=== PATIENT | male | born 1965 | race Caucasian/White ===

== ENCOUNTER 2022-03-22 10:19 | Inpatient (IN) ==
[2022-03-22 10:29] VITALS: BMI 27.9
[2022-03-22] MEDS ORDERED: LACTATED RINGERS 1,000 ML IV STA (10:50)
[2022-03-22 11:11] LABS: BASOPHILS % (AUTO) 0.2 % (0.0-3.0); EOSINOPHILS % (AUTO) 0.1 % (0.0-7.0); HEMATOCRIT 49.7 % (37.0-47.0); HEMOGLOBIN 16.8 g/dl (12.0-16.0); IMMATURE GRANULOCYTE # (AUTO) 0.1 (0.0-1.0); IMMATURE GRANULOCYTE % (AUTO) 0.4 % (0.0-5.0); LYMPHOCYTES # (AUTO) 0.9 K/uL (0.60-3.4); LYMPHOCYTES % (AUTO) 6.6 (10.0-50.0); MEAN CORPUSCULAR HEMOGLOBIN 30.2 pg (27.0-31.0); MEAN CORPUSCULAR HGB CONC 33.8 (31.8-35.4); MEAN CORPUSCULAR VOLUME 89.4 fl (81.0-99.0); MONOCYTES # (AUTO) 1.6 K/uL (0.4-2.0); MONOCYTES % (AUTO) 11.4 (0-10); NEUTROPHILS # (AUTO) 11.5 K/ul (2.0-6.9); NEUTROPHILS % (AUTO) 81.3 % (42.2-75.2); PLATELET COUNT 384 10^3/uL (140-440); RDW COEFFICIENT OF VARIATION 12.7 % (11.6-14.8); RED BLOOD COUNT 5.56 10^6/ul (4.20-5.40); WHITE BLOOD COUNT 14.09 K/ul (4.6-10.2)
[2022-03-22 11:25] LABS: ALANINE AMINOTRANSFERASE 25.9 U/L (0-35); ALBUMIN 3.99 g/dL (3.5-5.0); ASPARTATE AMINO TRANSFERASE 40.2 U/L (14-36); BILIRUBIN,TOTAL 0.71 mg/dL (0.2-1.3); BLOOD UREA NITROGEN 23.2 mg/dL (7-17); CALCIUM 8.94 mg/dL (8.4-10.2); CARBON DIOXIDE 29.9 mmol/L (22-30.0); CHLORIDE 94.9 mmol/L (98-107); CREATININE 1.42 mg/dL (0.60-1.30); GLUCOSE 147.2 mg/dL (74-106); POTASSIUM 3.73 mmol/L (3.5-5.1); SODIUM 132.5 mmol/L (134.5-145); TOTAL PROTEIN 7.56 g/dL (6.3-8.2)
--- NOTE | 2022-03-22 11:56 | CT ---
EXAM: CT abdomen pelvis without contrast HISTORY: Abdominal pain COMPARISON: None TECHNIQUE: Serial axial images of the abdomen pelvis were performed from the lung bases through the inferior pelvis without contrast. These were viewed in multiple planes. FINDINGS: Lung bases are clear with small airways thickening and ground-glass and ground-glass nodul es in the left lower lobe. Liver is unremarkable. The gallbladder is mildly distended. Adrenal glands are normal. Kidneys dem onstrate no obstructive uropathy with an exophytic low attenuation left renal cyst measuring 1.6 cm. Pancreas is normal. The stomach is minimally distended. The small bowel in the abdomen and pelvis is unremarkable. The colon demonstrates diffuse colonic wa ll thickening and inflammatory stranding seen throughout the entirety of the colon, but is most prono unced in the cecum. The appendix is normal. Urinary bladder is partially distended. The prostate i s normal. There is no lymphadenopathy or free air. The osseous structures demonstrate pars defects at L5 IMPRESSION: 1. Pancolitis most pronounced in the sigmoid colon and the cecum. There is no free air or abscess. 2. Small airways thickening with ground-glass and ground-glass nodules in the lung bases suggestive of small airways inflammation/infection. 3. Left renal cyst. All CT scans are performed using dose optimization techniques as appropriate to the performed exam an d include at least one of the following: Automated exposure control, adjustment of the mA and/or kV according t o size, and the use of iterative reconstruction technique.
--- NOTE | 2022-03-22 13:06 | ED.PDOC ---
General ED Provider: Dr. ELIZABET HSIEH Chief Complaint: Diarrhea Stated Complaint: Ill a few d with abdom cramps and watery diarrhea, several times a day. No fever, some nausea. He had been taking omnicef for bronchitis, and stopped when these sx started (took 8 of a 10 day supply). Generally healthy . No hx food poisoning, etc. Time Seen by Provider: 03/22/22 10:43 Mode of Arrival: Walk-In Information Source: Patient Exam Limitations: No limitations Nursing and Triage Documentation Reviewed and Agree: Yes Does patient meet sepsis criteria?: No System Inflammatory Response Syndrome: Not Applicable Sepsis Protocol: For patient's 13 years and over: Temp is 96.8 and below OR 101 and greater Pulse >90 BPM Resp >20/minute Acutely Altered Mental Status Are patient's symptoms suggestive of a new infection, such as: -Pneumonia -Skin, Soft Tissue -Endocarditis -UTI -Bone, Joint Infection -Implantable Device -Acute Abdominal Infection -Wound Infection -Meningitis -Blood Stream Catheter Infection -Unknown GI Complaint Exam Vomiting/Diarrhea Complaint/Exam Onset/Duration: few d Symptoms Are: Still present Episodes of Vomiting over last 24 Hours: 0 Episodes of Diarrhea Over Last 24 Hours: 10 Initial Severity: Mild Current Severity: Moderate Character of Diarrhea: Reports Watery Aggravating: Reports Food Alleviating: Reports None Associated Signs and Symptoms: Reports Cramping Non-GI Risk Factors: Reports None Surgical Obstruction Risk Factors: Reports None Related Surgical History: Reports None Abdominal Findings: Present Other (generalized cramping) Review of Systems Review Of Systems Constitutional: Reports Malaise, Weakness and Loss of appetite Eyes: Reports No symptoms Ears, Nose, Mouth, Throat: Reports No symptoms Respiratory: Reports No symptoms Cardiac: Reports No symptoms GI: Reports Abdominal pain, Diarrhea, Nausea and Poor fluid intake : Reports No symptoms Musculoskeletal: Reports No symptoms Skin: Reports No symptoms Neurological: Reports No symptoms Endocrine: Reports No symptoms Hematologic/Lymphatic: Reports No symptoms All Other Systems: Reviewed and Negative [facility] Medical History (Updated 03/22/22 @ 15:52 by IOANA VANEGAS RN) Diverticulosis Hypertension Family History (Updated 03/22/22 @ 15:52 by IOANA VANEGAS RN) Mother CHF (congestive heart failure) Hypertension Social History (Updated 03/22/22 @ 15:53 by IOANA VANEGAS RN) Smoking and tobacco status: Never smoker Smokeless tobacco user: chewing tobacco Alcohol intake: current Alcohol intake frequency: holidays/special occasions only Surgical History (Updated 03/22/22 @ 15:52 by IOANA VANEGAS RN) H/O knee surgery Physical Exam Physical Exam Appearance: Reports Ill-appearing Ill-appearing: Moderate Pain Distress: Mild Eyes: Reports ALAN ENT: Reports Oropharynx normal Neck: Supple Respiratory: Reports Airway patent and Breath sounds clear Cardiovascular: Reports Pulses normal GI/: Reports Soft and Tender (generalized) Musculoskeletal: Reports Normal strength and ROM intact Skin: Reports Warm and Dry Neurological: Reports Sensation intact and Motor intact Psychiatric: Reports Affect appropriate and Mood appropriate Interpretation Radiology Interpretation Radiology Interpretation By: Radiologist Radiology Results: Positive Exam Interpreted: CT Scan Xray Comments: abd/pel - pancolitis Critical Care Note Critical Care Note Total Critical Care Time (mins): 0 Course Course Hematology/Chemistry: 03/22/22 10:50 03/22/22 11:00 Orders, Labs, Meds: Lab Review 03/22/22 03/22/22 03/22/22 10:50 11:00 13:28 WBC 14.09 H RBC 5.56 H Hgb 16.8 H Hct 49.7 H MCV 89.4 MCH 30.2 MCHC 33.8 RDW Coeff of Zane 12.7 Plt Count 384 Immature Gran % (Auto) 0.4 Neut % (Auto) 81.3 H Lymph % (Auto) 6.6 L Sac % (Auto) 11.4 H Eos % (Auto) 0.1 Baso % (Auto) 0.2 Neut # (Auto) 11.5 H Lymph # (Auto) 0.9 Sac # (Auto) 1.6 Eos # (Auto) 0.0 Baso # (Auto) 0.0 Immature Gran # (Auto) 0.1 Sodium 132.5 L Potassium 3.73 Chloride 94.9 L Carbon Dioxide 29.9 Anion Gap 11.43 BUN 23.2 H Creatinine 1.42 H Estimated GFR (MDRD) 38.00 BUN/Creatinine Ratio 16.33 Glucose 147.2 H Calcium 8.94 Total Bilirubin 0.71 AST 40.2 H ALT 25.9 Alkaline Phosphatase 89.0 Total Protein 7.56 Albumin 3.99 Globulin 3.57 Albumin/Globulin Ratio 1.11 Influ A Molecular Assay Influ B Molecular Assay SARS CoV-2 RNA Rapid BHAVANA Negative 03/22/22 13:28 WBC RBC Hgb Hct MCV MCH MCHC RDW Coeff of Zane Plt Count Immature Gran % (Auto) Neut % (Auto) Lymph % (Auto) Sac % (Auto) Eos % (Auto) Baso % (Auto) Neut # (Auto) Lymph # (Auto) Sac # (Auto) Eos # (Auto) Baso # (Auto) Immature Gran # (Auto) Sodium Potassium Chloride Carbon Dioxide Anion Gap BUN Creatinine Estimated GFR (MDRD) BUN/Creatinine Ratio Glucose Calcium Total Bilirubin AST ALT Alkaline Phosphatase Total Protein Albumin Globulin Albumin/Globulin Ratio Influ A Molecular Assay Negative by naat Influ B Molecular Assay Negative by naat SARS CoV-2 RNA Rapid BHAVANA Orders Category Date Time Status ADMIT PATIENT INPATIENT .TO [facility] (NON-MONITORED ADMISSION 03/22/22 14:44 Active BED) ACTIVITY .Up ad Niki CARE 03/22/22 14:44 Active C-DIFF MONITORING (NURSING) BID CARE 03/22/22 11:25 Active GIVE HS SNACK 2100 CARE 03/22/22 14:45 Active INTAKE & OUTPUT Q8HR CARE 03/22/22 14:44 Active IP: INSERT SALINE LOCK ONCE CARE 03/22/22 14:44 Active VITAL SIGNS Q8HR CARE 03/22/22 14:44 Active CLEAR LIQUID DIET DIETARY 03/22/22 Dinner Ordered HS SNACK DIETARY 03/22/22 Dinner Ordered C. DIFFICILE Routine LAB 03/22/22 11:15 Received CBC W/ AUTO DIFF Stat LAB 03/22/22 10:50 Completed COMPREHENSIVE METABOLIC PANEL Stat LAB 03/22/22 11:00 Completed FLU A/B MOLECULAR Stat LAB 03/22/22 13:28 Completed SARS COV-2 RNA RAPID BHAVANA Stat LAB 03/22/22 13:28 Completed STOOL CULTURE Stat LAB 03/22/22 11:15 Results Ciprofloxacin/D5w [Cipro 400 mg/200 ml D5w] MEDS 03/22/22 15:30 Active 400 mg in 200 ml IV Q12HR Enoxaparin Sodium [Lovenox] MEDS 03/22/22 15:30 Active 40 mg SUBCUT DAILY Ketorolac Tromethamine [Toradol] MEDS 03/22/22 13:14 Discontinued 30 mg IVP ONCE ONE Metronidazole/Sodium Chloride [Flagyl 500 mg/100 ml] MEDS 03/22/22 15:30 Active 500 mg in 100 ml IV Q8HR Ondansetron HCl/Pf [Zofran 4 mg/2 ml] MEDS 03/22/22 15:30 Active 4 mg IVP Q6H Ringers Lactated Solution [Lactated Ringers] 1,000 ml MEDS 03/22/22 10:50 Discontinued IV BOLUS Saccharomyces Boulardii [Florastor] MEDS 03/22/22 15:30 Active 250 mg PO BID Sodium Chloride 0.9% [Sodium Chloride] 1,000 ml MEDS 03/22/22 15:00 Active IV 75 mls/hr RESUSCITATION STATUS Routine OTHERS 03/22/22 14:[address] ABDOMEN/PELVIS WO CONTRAST Stat RADS 03/22/22 10:50 Completed Medications Generic Name Dose Route Start Last Admin Trade Name Freq PRN Reason Stop Dose Admin Enoxaparin Sodium 40 mg 03/22/22 15:30 Enoxaparin Sodium 40 Mg/0.4 Ml Syr SUBCUT DAILY [facility] Sodium Chloride 1,000 mls @ 75 mls/hr 03/22/22 15:00 Sodium Chloride IV .[id number] SU Ciprofloxacin/Dextrose 400 mg in 200 mls @ 200 mls/hr 03/22/22 15:30 Cipro 400 Mg/200 Ml D5w IV 03/25/22 15:29 Q12HR SU Metronidazole 500 mg in 100 mls @ 100 mls/hr 03/22/22 15:30 Flagyl 500 Mg/100 Ml IV 03/25/22 15:29 Q8HR SU Ondansetron HCl 4 mg 03/22/22 15:30 Ondansetron Hcl/Pf 4 Mg/2 Ml Sdv IVP Q6H SU Saccharomyces Boulardii 250 mg 03/22/22 15:30 Saccharomyces Boulardii 250 Mg Capsule PO BID SU Discontinued Medications Generic Name Dose Route Start Last Admin Trade Name Freq PRN Reason Stop Dose Admin Lactated Ringer's 1,000 mls @ 1,000 mls/hr 03/22/22 10:50 03/22/22 11:06 Lactated Ringers IV 03/22/22 11:49 1,000 mls/hr BOLUS STA Administration Ketorolac Tromethamine 30 mg 03/22/22 13:14 03/22/22 13:25 Ketorolac Tromethamine 30 Mg/Ml Vial IVP 03/22/22 13:15 30 mg ONCE ONE Administration Vital Signs: Temp Pulse Resp BP Pulse Ox 03/22/22 10:19 98.0 F 101 H 18 144/90 H 96 Discharge Plan Discharge Patient Disposition: ADMITTED INPATIENT Discharge Problem: Pancolitis Did you review [place] SECRETARY ADMINISTRATIVE ASSISTANT?: Not Applicable ED Provider: ELIZABET HSIEH Condition: Stable Physician Progress Note: [Colitis, with hx of recent abx use, concern over C. diff, test back tomorrow. Preliminary stool testing pos for campylobacter. 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 ]
[2022-03-22] MEDS ORDERED: TORADOL IVP ONE (13:14)
[2022-03-22 13:57] LABS: MOLECULAR FLU A NEGATIVE BY NAAT (NEGATIVE); MOLECULAR FLU B NEGATIVE BY NAAT (NEGATIVE)
[2022-03-22] MEDS: SODIUM CHLORIDE 1,000 ML IV SCH (16:18)
[2022-03-22] MEDS: ZOFRAN 4 MG/2 ML IVP SCH ×2 (16:20→21:46)
[2022-03-22] MEDS: FLAGYL 500 MG/100 ML 500 MG/100 ML BAG IV SCH ×2 (16:23→20:09)
[2022-03-22] MEDS: LOVENOX SUBCUT SCH (16:24)
[2022-03-22] MEDS: FLORASTOR PO SCH ×2 (16:24→20:10)
[2022-03-22] MEDS: CIPRO 400 MG/200 ML D5W 400 MG/200 ML BAG IV SCH ×2 (17:22→21:25)
[2022-03-23] MEDS: ZOFRAN 4 MG/2 ML IVP SCH ×3 (03:34→15:51)
[2022-03-23] MEDS: FLAGYL 500 MG/100 ML 500 MG/100 ML BAG IV SCH ×3 (04:29→21:22)
[2022-03-23] MEDS: SODIUM CHLORIDE 1,000 ML IV SCH ×2 (05:29→21:06)
[2022-03-23] MEDS: LOVENOX SUBCUT SCH (08:18)
[2022-03-23] MEDS: FLORASTOR PO SCH ×2 (08:19→20:32)
[2022-03-23] MEDS: CIPRO 400 MG/200 ML D5W 400 MG/200 ML BAG IV SCH ×2 (08:21→20:32)
[2022-03-23] MEDS ORDERED: ZOFRAN 4 MG/2 ML IVP PRN (15:50)
--- NOTE | 2022-03-23 19:52 | PCM.PROG ---
Date Seen by Provider: 03/23/22 Time Seen by Provider: 09:00 Subjective: CC - Feeling better, less abdominal pain, ready to eat. Objective: Vitals: T=97.6 F, P=85, R=16, BF=175/68, SPO2=99 HEENT: [WNL] Neck: [supple] Lungs: [clear] CVS: RRR Abdomen: [soft, lower abdomen tender without RT] Extremities: [intact] Neurological: [intact] Skin: [intact] Lab/Tests/Diagnostic Imaging: see reports (1) Pancolitis: Status: Acute Code(s): K51.00 - Ulcerative (chronic) pancolitis without complications SNOMED Code(s): 432330935 Assessment: Clinically improved with less pain and lowered WBC count. (2) Campylobacter diarrhea: Status: Acute Code(s): A04.5 - Campylobacter enteritis SNOMED Code(s): 90946134 Assessment: Clinically improved on abx cipro and flagyl. (3) C. difficile colitis: Status: Acute Code(s): A04.72 - Enterocolitis due to Clostridium difficile, not specified as recurrent SNOMED Code(s): 880404614 Assessment: Clincally improved, much less diarrhea, flagyl seems to be working and oral vancomycin will not be needed. Plan: Continue same abx, advance diet, anticipate d/c tomorrow.
[2022-03-23] MEDS ORDERED: COMPAZINE 10 MG in SODIUM CHLORIDE 50 ML IV PRN (21:00)
[2022-03-23] MEDS ORDERED: COMPAZINE ONE (21:19)
[2022-03-23] MEDS: CLARITIN PO SCH (21:22)
[2022-03-24] MEDS: FLAGYL 500 MG/100 ML 500 MG/100 ML BAG IV SCH ×3 (04:53→21:04)
[2022-03-24] MEDS: LOVENOX SUBCUT SCH (08:55)
[2022-03-24] MEDS: CLARITIN PO SCH (08:55)
[2022-03-24] MEDS: FLORASTOR PO SCH ×2 (08:55→20:46)
[2022-03-24] MEDS: CIPRO 400 MG/200 ML D5W 400 MG/200 ML BAG IV SCH ×2 (08:55→20:02)
--- NOTE | 2022-03-24 11:30 | PCM.PROG ---
Date Seen by Provider: 03/24/22 Time Seen by Provider: 11:28 Subjective: overall he feels better---nausea was reported to me first of shift and he thinks its better now Objective: Vitals: T=97.1 F, P=60, R=16, LI=399/73, SPO2=93 HEENT: [] Neck: [supple] Lungs: [clear] CVS: [rrr] Abdomen: [soft nt bs] Extremities: [] Neurological: [intact] Skin: [] Lab/Tests/Diagnostic Imaging: [] (1) Pancolitis: Status: Acute Code(s): K51.00 - Ulcerative (chronic) pancolitis without complications SNOMED Code(s): 539366135 (2) Campylobacter diarrhea: Status: Acute Code(s): A04.5 - Campylobacter enteritis SNOMED Code(s): 56945122 (3) C. difficile colitis: Status: Acute Code(s): A04.72 - Enterocolitis due to Clostridium difficile, not specified as recurrent SNOMED Code(s): 249971271 Plan: was feeling better but had some transient nausea--probably home tomorrow if no nausea
[2022-03-24] MEDS: SODIUM CHLORIDE 1,000 ML IV SCH ×2 (12:39→16:13)
[2022-03-25] MEDS: FLAGYL 500 MG/100 ML 500 MG/100 ML BAG IV SCH ×3 (04:26→20:04)
[2022-03-25] MEDS: CIPRO 400 MG/200 ML D5W 400 MG/200 ML BAG IV SCH ×2 (08:55→21:22)
[2022-03-25] MEDS: CLARITIN PO SCH (08:57)
[2022-03-25] MEDS: FLORASTOR PO SCH ×2 (08:57→20:44)
[2022-03-25] MEDS: LOVENOX SUBCUT SCH (08:58)
--- NOTE | 2022-03-25 10:28 | PCM.PROG ---
Date Seen by Provider: 03/25/22 Time Seen by Provider: 09:15 Subjective: Oral intake improving. Still having diarrheal stools every 3-4 hours;denies blood in stools. Denies abdominal pain. Objective: Vitals: T=98.3 F, P=62, R=16, DC=829/71, SPO2=99 Patient alert and appears to be comfortable. HEENT: [] Oral mucosa moist. Neck: [] Lungs: [] Lungs clear and BS equal. CVS: [] RRR. No peripheral edema. Abdomen: [] Soft and nontender. Extremities: [] Neurological: [] Skin: [] Lab/Tests/Diagnostic Imaging: [] (1) Campylobacter diarrhea: Status: Acute Code(s): A04.5 - Campylobacter enteritis SNOMED Code(s): 90451914 (2) C. difficile colitis: Status: Acute Code(s): A04.72 - Enterocolitis due to Clostridium difficile, not specified as recurrent SNOMED Code(s): 006162061 (3) Infectious colitis: Status: Acute Code(s): A09 - Infectious gastroenteritis and colitis, unspecified SNOMED Code(s): 05088355 Assessment: Patient improving, though still having frequent diarrheal stools. Plan: Heplock IV fluids. Will check CXR;abd CT with infectious/inflammatory changes at lung bases. Continue antibiotics.
[2022-03-25 10:49] LABS: BASOPHILS # (AUTO) 0.1 K/uL (0-0.2); BASOPHILS % (AUTO) 0.8 % (0.0-3.0); EOSINOPHILS # (AUTO) 0.3 K/ul (0.0-0.7); EOSINOPHILS % (AUTO) 2.6 % (0.0-7.0); HEMATOCRIT 38.8 % (42.0-52.0); HEMOGLOBIN 13.1 g/dl (14.0-18.0); IMMATURE GRANULOCYTE # (AUTO) 0.1 (0.0-1.0); IMMATURE GRANULOCYTE % (AUTO) 0.7 % (0.0-5.0); LYMPHOCYTES # (AUTO) 0.8 K/uL (0.60-3.4); LYMPHOCYTES % (AUTO) 8.1 (10.0-50.0); MEAN CORPUSCULAR HEMOGLOBIN 30.3 pg (27.0-31.0); MEAN CORPUSCULAR HGB CONC 33.8 (31.8-35.4); MEAN CORPUSCULAR VOLUME 89.6 fl (80.0-94.0); MONOCYTES # (AUTO) 0.9 K/uL (0.4-2.0); MONOCYTES % (AUTO) 8.5 (0-10); NEUTROPHILS # (AUTO) 7.9 K/ul (2.0-6.9); NEUTROPHILS % (AUTO) 79.3 % (42.2-75.2); PLATELET COUNT 253 10^3/uL (140-440); RDW COEFFICIENT OF VARIATION 12.7 % (11.6-14.8); RED BLOOD COUNT 4.33 10^6/ul (4.70-6.10); WHITE BLOOD COUNT 9.97 K/ul (4.2-10.2)
[2022-03-25 11:01] LABS: ALANINE AMINOTRANSFERASE 19.5 U/L (0-50); ALBUMIN 2.92 g/dL (3.5-5.0); ALKALINE PHOSPHATASE 59.9 U/L (38-126); ASPARTATE AMINO TRANSFERASE 31.1 U/L (17-59); BILIRUBIN,TOTAL 0.44 mg/dL (0.2-1.3); CALCIUM 7.9 mg/dL (8.4-10.2); CARBON DIOXIDE 28.9 mmol/L (22-30.0); CHLORIDE 101.1 mmol/L (98-107); CREATININE 1.12 mg/dL (0.60-1.10); GLUCOSE 127.3 mg/dL (74-106); POTASSIUM 3.14 mmol/L (3.5-5.1); SODIUM 133.9 mmol/L (134.5-145); TOTAL PROTEIN 5.82 g/dL (6.3-8.2)
--- NOTE | 2022-03-25 15:08 | DI ---
EXAM: PA and lateral views of the chest HISTORY: Shortness of breath COMPARISON: None FINDINGS: The cardiomediastinal silhouette is normal. There is no pneumothorax or pleural effusion. There is no consolidation, nodule or mass. The osseous structures are unremarkable. IMPRESSION: No acute cardiopulmonary process
[2022-03-25] MEDS: SODIUM CHLORIDE 1,000 ML IV SCH (16:25)
[2022-03-25] MEDS: PAXIL PO SCH (18:42)
[2022-03-25] MEDS: PROTONIX PO SCH (18:43)
[2022-03-25] MEDS: TESSALON PERLES PO PRN (18:44)
[2022-03-25] MEDS: COZAAR PO SCH (20:44)
[2022-03-25] MEDS: HYDROCHLOROTHIAZIDE PO SCH (20:44)
[2022-03-26] MEDS: FLAGYL 500 MG/100 ML 500 MG/100 ML BAG IV SCH ×2 (05:02→13:08)
[2022-03-26] MEDS: TESSALON PERLES PO PRN (05:11)
[2022-03-26 05:27] LABS: BASOPHILS # (AUTO) 0.1 K/uL (0-0.2); EOSINOPHILS # (AUTO) 0.6 K/ul (0.0-0.7); EOSINOPHILS % (AUTO) 7.4 % (0.0-7.0); HEMATOCRIT 39.1 % (42.0-52.0); HEMOGLOBIN 13.2 g/dl (14.0-18.0); IMMATURE GRANULOCYTE # (AUTO) 0.1 (0.0-1.0); IMMATURE GRANULOCYTE % (AUTO) 1.7 % (0.0-5.0); LYMPHOCYTES # (AUTO) 1.2 K/uL (0.60-3.4); LYMPHOCYTES % (AUTO) 14.7 (10.0-50.0); MEAN CORPUSCULAR HEMOGLOBIN 29.9 pg (27.0-31.0); MEAN CORPUSCULAR HGB CONC 33.8 (31.8-35.4); MEAN CORPUSCULAR VOLUME 88.5 fl (80.0-94.0); MONOCYTES # (AUTO) 1.1 K/uL (0.4-2.0); MONOCYTES % (AUTO) 13.6 (0-10); NEUTROPHILS # (AUTO) 5.2 K/ul (2.0-6.9); NEUTROPHILS % (AUTO) 61.6 % (42.2-75.2); PLATELET COUNT 263 10^3/uL (140-440); RED BLOOD COUNT 4.42 10^6/ul (4.70-6.10); WHITE BLOOD COUNT 8.41 K/ul (4.2-10.2)
[2022-03-26 05:38] LABS: ALANINE AMINOTRANSFERASE 24.4 U/L (0-50); ALBUMIN 2.92 g/dL (3.5-5.0); ALKALINE PHOSPHATASE 65.4 U/L (38-126); ASPARTATE AMINO TRANSFERASE 39.5 U/L (17-59); BILIRUBIN,TOTAL 0.35 mg/dL (0.2-1.3); BLOOD UREA NITROGEN 11.1 mg/dL (9-20); CALCIUM 7.98 mg/dL (8.4-10.2); CARBON DIOXIDE 31.9 mmol/L (22-30.0); CHLORIDE 98.4 mmol/L (98-107); CREATININE 1.14 mg/dL (0.60-1.10); GLUCOSE 114.5 mg/dL (74-106); POTASSIUM 2.93 mmol/L (3.5-5.1); SODIUM 133.3 mmol/L (134.5-145); TOTAL PROTEIN 5.86 g/dL (6.3-8.2)
[2022-03-26] MEDS: PROTONIX PO SCH (06:01)
[2022-03-26] MEDS ORDERED: K-DUR PO ONE ×2 (08:40→12:00)
[2022-03-26] MEDS ORDERED: POTASSIUM CHLORIDE 10 MEQ/100 ML PREMIX 10 MEQ/100 ML BAG IV ONE (08:41)
[2022-03-26] MEDS ORDERED: SODIUM CHLORIDE 1,000 ML IV SCH (09:00)
--- NOTE | 2022-03-26 09:16 | PCM.PROG ---
Date Seen by Provider: 03/26/22 Time Seen by Provider: 08:00 Subjective: Patient states that he if felling better. Continued to have some Diarrhea/ loose stool with bout 7 loose stools. he was admitted on the 22 of March after starting to have Multiple loose stool after being on Omincef for bronchitis for 8/10 days He was found to have Campylobacter on his stool culture and then C iff He has been on Cipro since admission. Today he was noted to have low Potassium was wanting to go home today. Objective: Vitals: T=98.0 F, P=56, R=16, VD=418/72, SPO2=99 HEENT: [Mucus membranes moist] Neck: [benign] Lungs: [Clinically clear bilaterally] CVS: [Regular S1 and S2, no murmur appreciated] Abdomen: [Soft to palpation with no tenderness, hyper active bowel sounds in all quadrants ] Extremities: [No Edema] Neurological: [No focal Neurological Deficits ] Skin: [No rash] Lab/Tests/Diagnostic Imaging: [ Laboratory Results - last 24 hr 03/25/22 03/25/22 03/26/22 10:43 10:43 05:15 WBC 9.97 8.41 RBC 4.33 L 4.42 L Hgb 13.1 L D 13.2 L Hct 38.8 L D 39.1 L MCV 89.6 88.5 MCH 30.3 29.9 MCHC 33.8 33.8 RDW Coeff of Zane 12.7 13.0 Plt Count 253 263 Immature Gran % (Auto) 0.7 1.7 Neut % (Auto) 79.3 H 61.6 Lymph % (Auto) 8.1 L 14.7 [place] % (Auto) 8.5 13.6 H Eos % (Auto) 2.6 7.4 H Baso % (Auto) 0.8 1.0 Neut # (Auto) 7.9 H 5.2 Lymph # (Auto) 0.8 1.2 [place] # (Auto) 0.9 1.1 Eos # (Auto) 0.3 0.6 Baso # (Auto) 0.1 0.1 Immature Gran # (Auto) 0.1 0.1 Sodium 133.9 L Potassium 3.14 L Chloride 101.1 Carbon Dioxide 28.9 Anion Gap 7.04 BUN 14.0 Creatinine 1.12 H Estimated GFR (MDRD) 68.00 BUN/Creatinine Ratio 12.50 Glucose 127.3 H Calcium 7.90 L Magnesium Total Bilirubin 0.44 AST 31.1 ALT 19.5 Alkaline Phosphatase 59.9 D Total Protein 5.82 L Albumin 2.92 L Globulin 2.90 Albumin/Globulin Ratio 1.00 03/26/22 03/26/22 05:15 05:15 WBC RBC Hgb Hct MCV MCH MCHC RDW Coeff of Zane Plt Count Immature Gran % (Auto) Neut % (Auto) Lymph % (Auto) [place] % (Auto) Eos % (Auto) Baso % (Auto) Neut # (Auto) Lymph # (Auto) [place] # (Auto) Eos # (Auto) Baso # (Auto) Immature Gran # (Auto) Sodium 133.3 L Potassium 2.93 L Chloride 98.4 Carbon Dioxide 31.9 H Anion Gap 5.93 BUN 11.1 Creatinine 1.14 H Estimated GFR (MDRD) 66.00 BUN/Creatinine Ratio 9.73 Glucose 114.5 H Calcium 7.98 L Magnesium 2.17 Total Bilirubin 0.35 AST 39.5 ALT 24.4 Alkaline Phosphatase 65.4 Total Protein 5.86 L Albumin 2.92 L Globulin 2.94 Albumin/Globulin Ratio 0.99 ] (1) Hypokalemia due to excessive gastrointestinal loss of potassium: Status: Acute Code(s): E87.6 - Hypokalemia SNOMED Code(s): 64915250 Assessment: TODAY K IS 2.93 WILL REPLACE WITH IV AND PO AND REPEAT THIS EARLY PM (2) Campylobacter diarrhea: Status: Acute Code(s): A04.5 - Campylobacter enteritis SNOMED Code(s): 63619419 Assessment: according to current Literature from up to date "The efficacy of antimicrobial therapy for Campylobacter infection has been addressed in a small number of randomized trials. A meta-analysis of 11 small randomized trials noted that antimicrobial therapy reduced the duration of intestinal symptoms by only 1.3 days (95% CI 0.6-2.0 days) [79]. There was a nonsignificant trend toward greater benefit for patients treated within the first three days of illness. Given the self-limited nature of most Campylobacter infections and the limited efficacy of routine antimicrobial therapy, treatment is warranted only for patients with severe disease or risk for severe disease. Patients with severe disease include individuals with bloody stools, high fever, extraintestinal infection, worsening or relapsing symptoms, or symptoms lasting longer than one week. Those at risk for severe disease include patients who are older, , or immunocompromised." Clin Infect Dis. 2007;44(5):696. Clin Infect Dis. 2007;44(5):701. HE HAS RECEIVED 3 DAYS OF CIPRO. AND SINCE IT IS LIKELY THAT HIS DIARRHEA IS FROM C-DIFF WILL DISCONTINUE COPRO IT MAY MAKE IT C-DISF WORS WITHOUT ADDED BENEFIT NOTED IN THE LITERATURE. (3) C. difficile colitis: Status: Acute Code(s): A04.72 - Enterocolitis due to Clostridium difficile, not specified as recurrent SNOMED Code(s): 786006966 Assessment: UP to date: Nonsevere disease is supported by the following clinical data: White blood cell count <=5,000 cells/mL and serum creatinine level <1.5 mg/dL Severe disease* is supported by the following clinical data: White blood cell count >15,000 cells/mL and/or serum creatinine level >=.5 mg/dL Antibiotic regimens: in order off preference 1. Fidaxomicin 200 mg orally twice daily for 10 days 2. Vancomycin? 125 mg orally 4 times daily for 10 days For nonsevere disease, alternative regimen if above agents are unavailable: 3. Metronidazole? 500 mg orally 3 times daily for 10 to 14 days IMPROVING WITH FLAGYL. SINCE HE STILL HAVE MULTIPLE LOOSE STOOLS. will discharge on vancomycin taper as follows * 125 mg orally 4 times daily for 10 days, then * 125 mg orally 2 times daily for 7 days, then * 125 mg orally once daily for 7 days, then * 125 mg orally every 2 to 3 days for 2 to 8 weeks (4) Infectious colitis: Status: Acute Code(s): A09 - Infectious gastroenteritis and colitis, unspecified SNOMED Code(s): 90142465 Assessment: ABOVE, DISCONTINUE CIPRO AFTER 4 DAYS Plan: PROBABLY DISCHARGE TODAY IF K IS NORMAL.
[2022-03-26] MEDS: HYDROCHLOROTHIAZIDE PO SCH (09:22)
[2022-03-26] MEDS: CLARITIN PO SCH (09:23)
[2022-03-26] MEDS: LOVENOX SUBCUT SCH (09:23)
[2022-03-26] MEDS: PAXIL PO SCH (09:23)
[2022-03-26] MEDS: FLORASTOR PO SCH (09:23)
[2022-03-26] MEDS: COZAAR PO SCH (09:23)
--- NOTE | 2022-03-26 14:55 | PCM.DC ---
Final Diagnosis: 1. CAMPYLOBACTER ENTERITIS 2. CLOSTRIDIUM -DIFFICILE COLITIS 3. HYPOKALEMIA 4. DEHYDRATION Physical Exam Appearance: Well-appearing Ill-appearing: Not Applicable Pain Distress: Not Applicable Eyes: ALAN, EOMI and Conjunctiva clear ENT: Nose normal Neck: Not Examined Respiratory: Airway patent, Breath sounds clear and Breath sounds equal Cardiovascular: RRR, Pulses normal and Bradycardia GI/: Soft, Nontender and Bowel sounds hyperactive Musculoskeletal: Normal strength, ROM intact and No edema Skin: Warm and Dry Neurological: Motor intact, Alert and Oriented Psychiatric: Affect appropriate and Mood appropriate (1) Hypokalemia due to excessive gastrointestinal loss of potassium: Status: Acute Code(s): E87.6 - Hypokalemia SNOMED Code(s): 93819260 (2) Campylobacter diarrhea: Status: Acute Code(s): A04.5 - Campylobacter enteritis SNOMED Code(s): 24873799 (3) C. difficile colitis: Status: Acute Code(s): A04.72 - Enterocolitis due to Clostridium difficile, not specified as recurrent SNOMED Code(s): 268831742 (4) Infectious colitis: Status: Acute Code(s): A09 - Infectious gastroenteritis and colitis, unspecified SNOMED Code(s): 15981398 Reason for Hospitalization: severe Diarrhea with colitis Prognosis/Condition at Discharge: Improved with less diarrhea and well hydrated, Potassium replaced. Medications at Discharge: Vancomycin tapered dose * 125 mg orally 4 times daily for 10 to 14 days, then * 125 mg orally 2 times daily for 7 days, then * 125 mg orally once daily for 7 days, then * 125 mg orally every 2 to 3 days for 2 to 8 weeks Potassium Lab/Diagnostics: Comprehensive Lab Summary 03/22/22 03/22/22 03/22/22 Range/Units 10:50 11:00 13:28 WBC 14.09 H (4.6-10.2) K/ul RBC 5.56 H (4.20-5.40) 10^6/ul Hgb 16.8 H (12.0-16.0) g/dl Hct 49.7 H (37.0-47.0) % MCV 89.4 (81.0-99.0) fl MCH 30.2 (27.0-31.0) pg MCHC 33.8 (31.8-35.4) RDW Coeff of Zane 12.7 (11.6-14.8) % Plt Count 384 (140-440) 10^3/uL Immature Gran % (Auto) 0.4 (0.0-5.0) % Neut % (Auto) 81.3 H (42.2-75.2) % Lymph % (Auto) 6.6 L (10.0-50.0) [place] % (Auto) 11.4 H (0-10) Eos % (Auto) 0.1 (0.0-7.0) % Baso % (Auto) 0.2 (0.0-3.0) % Neut # (Auto) 11.5 H (2.0-6.9) K/ul Lymph # (Auto) 0.9 (0.60-3.4) K/uL [place] # (Auto) 1.6 (0.4-2.0) K/uL Eos # (Auto) 0.0 (0.0-0.7) K/ul Baso # (Auto) 0.0 (0-0.2) K/uL Immature Gran # (Auto) 0.1 (0.0-1.0) Sodium 132.5 L (134.5-145) mmol/L Potassium 3.73 (3.5-5.1) mmol/L Chloride 94.9 L (98-107) mmol/L Carbon Dioxide 29.9 (22-30.0) mmol/L Anion Gap 11.43 BUN 23.2 H (7-17) mg/dL Creatinine 1.42 H (0.60-1.30) mg/dL Estimated GFR (MDRD) 38.00 mL/min BUN/Creatinine Ratio 16.33 Glucose 147.2 H (74-106) mg/dL Calcium 8.94 (8.4-10.2) mg/dL Magnesium (1.6-2.3) mg/dL Total Bilirubin 0.71 (0.2-1.3) mg/dL AST 40.2 H (14-36) U/L ALT 25.9 (0-35) U/L Alkaline Phosphatase 89.0 (38-126) U/L Total Protein 7.56 (6.3-8.2) g/dL Albumin 3.99 (3.5-5.0) g/dL Globulin 3.57 Albumin/Globulin Ratio 1.11 Influ A Molecular Assay (NEGATIVE) Influ B Molecular Assay (NEGATIVE) SARS CoV-2 RNA Rapid BHAVANA Negative (NEGATIVE) 03/22/22 03/25/22 03/25/22 Range/Units 13:28 10:43 10:43 WBC 9.97 (4.6-10.2) K/ul RBC 4.33 L (4.20-5.40) 10^6/ul Hgb 13.1 L D (12.0-16.0) g/dl Hct 38.8 L D (37.0-47.0) % MCV 89.6 (81.0-99.0) fl MCH 30.3 (27.0-31.0) pg MCHC 33.8 (31.8-35.4) RDW Coeff of Zane 12.7 (11.6-14.8) % Plt Count 253 (140-440) 10^3/uL Immature Gran % (Auto) 0.7 (0.0-5.0) % Neut % (Auto) 79.3 H (42.2-75.2) % Lymph % (Auto) 8.1 L (10.0-50.0) [place]bers[place] % (Auto) 8.5 (0-10) Eos % (Auto) 2.6 (0.0-7.0) % Baso % (Auto) 0.8 (0.0-3.0) % Neut # (Auto) 7.9 H (2.0-6.9) K/ul Lymph # (Auto) 0.8 (0.60-3.4) K/uL [place] # (Auto) 0.9 (0.4-2.0) K/uL Eos # (Auto) 0.3 (0.0-0.7) K/ul Baso # (Auto) 0.1 (0-0.2) K/uL Immature Gran # (Auto) 0.1 (0.0-1.0) Sodium 133.9 L (134.5-145) mmol/L Potassium 3.14 L (3.5-5.1) mmol/L Chloride 101.1 (98-107) mmol/L Carbon Dioxide 28.9 (22-30.0) mmol/L Anion Gap 7.04 BUN 14.0 (7-17) mg/dL Creatinine 1.12 H (0.60-1.30) mg/dL Estimated GFR (MDRD) 68.00 mL/min BUN/Creatinine Ratio 12.50 Glucose 127.3 H (74-106) mg/dL Calcium 7.90 L (8.4-10.2) mg/dL Magnesium (1.6-2.3) mg/dL Total Bilirubin 0.44 (0.2-1.3) mg/dL AST 31.1 (14-36) U/L ALT 19.5 (0-35) U/L Alkaline Phosphatase 59.9 D (38-126) U/L Total Protein 5.82 L (6.3-8.2) g/dL Albumin 2.92 L (3.5-5.0) g/dL Globulin 2.90 Albumin/Globulin Ratio 1.00 Influ A Molecular Assay Negative by naat (NEGATIVE) Influ B Molecular Assay Negative by naat (NEGATIVE) SARS CoV-2 RNA Rapid BHAVANA (NEGATIVE) 03/26/22 03/26/22 03/26/22 Range/Units 05:15 05:15 05:15 WBC 8.41 (4.6-10.2) K/ul RBC 4.42 L (4.20-5.40) 10^6/ul Hgb 13.2 L (12.0-16.0) g/dl Hct 39.1 L (37.0-47.0) % MCV 88.5 (81.0-99.0) fl MCH 29.9 (27.0-31.0) pg MCHC 33.8 (31.8-35.4) RDW Coeff of Zane 13.0 (11.6-14.8) % Plt Count 263 (140-440) 10^3/uL Immature Gran % (Auto) 1.7 (0.0-5.0) % Neut % (Auto) 61.6 (42.2-75.2) % Lymph % (Auto) 14.7 (10.0-50.0) [place] % (Auto) 13.6 H (0-10) Eos % (Auto) 7.4 H (0.0-7.0) % Baso % (Auto) 1.0 (0.0-3.0) % Neut # (Auto) 5.2 (2.0-6.9) K/ul Lymph # (Auto) 1.2 (0.60-3.4) K/uL [place] # (Auto) 1.1 (0.4-2.0) K/uL Eos # (Auto) 0.6 (0.0-0.7) K/ul Baso # (Auto) 0.1 (0-0.2) K/uL Immature Gran # (Auto) 0.1 (0.0-1.0) Sodium 133.3 L (134.5-145) mmol/L Potassium 2.93 L (3.5-5.1) mmol/L Chloride 98.4 (98-107) mmol/L Carbon Dioxide 31.9 H (22-30.0) mmol/L Anion Gap 5.93 BUN 11.1 (7-17) mg/dL Creatinine 1.14 H (0.60-1.30) mg/dL Estimated GFR (MDRD) 66.00 mL/min BUN/Creatinine Ratio 9.73 Glucose 114.5 H (74-106) mg/dL Calcium 7.98 L (8.4-10.2) mg/dL Magnesium 2.17 (1.6-2.3) mg/dL Total Bilirubin 0.35 (0.2-1.3) mg/dL AST 39.5 (14-36) U/L ALT 24.4 (0-35) U/L Alkaline Phosphatase 65.4 (38-126) U/L Total Protein 5.86 L (6.3-8.2) g/dL Albumin 2.92 L (3.5-5.0) g/dL Globulin 2.94 Albumin/Globulin Ratio 0.99 Influ A Molecular Assay (NEGATIVE) Influ B Molecular Assay (NEGATIVE) SARS CoV-2 RNA Rapid BHAVANA (NEGATIVE) 03/26/22 Range/Units 14:10 WBC (4.6-10.2) K/ul RBC (4.20-5.40) 10^6/ul Hgb (12.0-16.0) g/dl Hct (37.0-47.0) % MCV (81.0-99.0) fl MCH (27.0-31.0) pg MCHC (31.8-35.4) RDW Coeff of Zane (11.6-14.8) % Plt Count (140-440) 10^3/uL Immature Gran % (Auto) (0.0-5.0) % Neut % (Auto) (42.2-75.2) % Lymph % (Auto) (10.0-50.0) [place] % (Auto) (0-10) Eos % (Auto) (0.0-7.0) % Baso % (Auto) (0.0-3.0) % Neut # (Auto) (2.0-6.9) K/ul Lymph # (Auto) (0.60-3.4) K/uL [place] # (Auto) (0.4-2.0) K/uL Eos # (Auto) (0.0-0.7) K/ul Baso # (Auto) (0-0.2) K/uL Immature Gran # (Auto) (0.0-1.0) Sodium (134.5-145) mmol/L Potassium 3.43 L (3.5-5.1) mmol/L Chloride (98-107) mmol/L Carbon Dioxide (22-30.0) mmol/L Anion Gap BUN (7-17) mg/dL Creatinine (0.60-1.30) mg/dL Estimated GFR (MDRD) mL/min BUN/Creatinine Ratio Glucose (74-106) mg/dL Calcium (8.4-10.2) mg/dL Magnesium (1.6-2.3) mg/dL Total Bilirubin (0.2-1.3) mg/dL AST (14-36) U/L ALT (0-35) U/L Alkaline Phosphatase (38-126) U/L Total Protein (6.3-8.2) g/dL Albumin (3.5-5.0) g/dL Globulin Albumin/Globulin Ratio Influ A Molecular Assay (NEGATIVE) Influ B Molecular Assay (NEGATIVE) SARS CoV-2 RNA Rapid BHAVANA (NEGATIVE) 03/22/22 11:15 Stool Stool Culture - Final 03/22/22 11:15 Stool C. difficile DNA Amplification - Final 03/22/22 11:15 Stool - Final Education Provided to Patient and Family: Follow-up with your PCP in 1 week. Return to ED if worse or concerned. Stop home antibiotics that could have caused C diff Follow-ups: Follow-up with your PCP in 1 week. Return to ED if worse or concerned. Discharge Disposition: Home Hospital Course: Patient was given Antibiotics of GI infection with IV fluids Given Potassium to replace Low potassium Plan: Discharge home with vancomycin taper and Potassium
[2022-03-26 15:27] VITALS: BP 132/80; TEMP 97.1
== END 2022-03-26 15:45 | disposition home or self-care (01) | DRG 386 ==
LOC: ED 10:19 → MEDSURG A 15:13
PROVIDERS: ADMIT Emergency Medicine; ATTEND Internal Medicine Geriatric Medicine
DX: A09 Infectious gastroenteritis and colitis, unspecified; Z20.822 Contact with and (suspected) exposure to COVID-19; Z51.81 Encounter for therapeutic drug level monitoring; Z79.1 Long term (current) use of non-steroidal anti-inflammatories (NSAID); E87.6 Hypokalemia; K51.00 Ulcerative (chronic) pancolitis without complications; A04.5 Campylobacter enteritis; F17.220 Nicotine dependence, chewing tobacco, uncomplicated; E86.0 Dehydration; R10.9 Unspecified abdominal pain; Z79.899 Other long term (current) drug therapy; A04.72 Enterocolitis due to Clostridium difficile, not specified as recurrent; I10 Essential (primary) hypertension